=== PATIENT | male | born 1980 | race Caucasian/White ===

== ENCOUNTER 2016-12-19 11:54 | Emergency (ER) | payer OTHER ==
[2016-12-19] MEDS ORDERED: Sodium Chloride 0.9% 10 ML Syringe FLUSH PRN (13:27)
--- NOTE | 2016-12-19 13:36 | EDM.PDOC ---
ED HPI GENERAL MEDICAL PROBLEM - General Chief Complaint: Chest Pain Stated Complaint: CHEST TIGHTNESS OFF AND ON Time Seen by Provider: 12/19/16 13:00 Source of Information: Reports: Patient History Limitations: Reports: No Limitations - History of Present Illness INITIAL COMMENTS - FREE TEXT/NARRATIVE: Patient is a 35-year-old male has been expressing intermittent chest pain off and on for the past few months. Describes as a twinge to his heart. Discomfort comes and goes. As of recently the frequency of episodes has increased with radiation into his arms bilaterally. States discomfort comes on while at rest. Describes the chest discomfort as a tightness. There has been a few instances where it increases with breathing. For the most part it comes on with no known provoking activities. Pain intensity varies. As of recent 2 out of 10 while resting. There has been no known increase in stress in his life. With onset of episodes he has no nausea or vomiting, diaphoresis, lightheadedness, dizziness, pre-/syncopal episodes, palpitations, or shortness of breath. He has no history of DVT or PE. He has no risk factors according to perc rule. Past medical history includes asthma and is currently on albuterol. Denies any smoking history. SH non contributory. Denies alcohol or recreational drug use. Dad 2 years ago due to CVA. No known history of CAD for 1st degree relative. Obviously there is some vascular disease noted. Chest Pain Score (Numeric/FACES): 2 - Related Data Allergies Allergy/AdvReac Type Severity Reaction Status Date / Time No Known Allergies Allergy Verified 12/19/16 12:08 Home Meds: Home Meds Albuterol Sulfate [Proair Hfa] 8.5 gm IH Q4HR PRN #1 [email or web address] 12/19/16 [Rx] Past Medical History Respiratory History: Reports: Asthma - Past Surgical History Musculoskeletal Surgical History: Reports: Other (See Below) Other Musculoskeletal Surgeries/Procedures:: knee reconstruction, right Social & Family History - Tobacco Use Smoking Status *Q: Never Smoker Second Hand Smoke Exposure: No - Caffeine Use Caffeine Use: Reports: Soda - Recreational Drug Use Recreational Drug Use: No ED ROS GENERAL - Review of Systems Review Of Systems: ROS reveals no pertinent complaints other than HPI. ED EXAM, GENERAL - Physical Exam Exam: See Below Exam Limited By: No Limitations General Appearance: Alert, WD/WN, No Apparent Distress Eye Exam: Bilateral Eye: PERRL Ears: Hearing Grossly Normal Nose: Normal Inspection Throat/Mouth: Normal Voice, No Airway Compromise Neck: Normal Inspection, Supple Respiratory/Chest: No Respiratory Distress, Lungs Clear, Normal Breath Sounds, No Accessory Muscle Use, Chest Non-Tender Cardiovascular: Normal Peripheral Pulses, Regular Rate, Rhythm, No Murmur Peripheral Pulses: 2+: Radial (L), Radial (R) GI/Abdominal: Normal Bowel Sounds, Soft, Non-Tender, No Organomegaly, No Distention Back Exam: Normal Inspection, Full Range of Motion. No: CVA Tenderness (L), CVA Tenderness (R) Extremities: Normal Inspection, Normal Range of Motion, Non-Tender, No Pedal Edema, Normal Capillary Refill Neurological: Alert, Oriented, CN II-XII Intact, Normal Cognition, No Motor/ Sensory Deficits Psychiatric: Normal Affect, Normal Mood Skin Exam: Warm, Dry, Intact, Normal Color Course - Vital Signs Last Recorded V/S: Last Vital Signs Temp 97.7 F 12/19/16 12:06 Pulse 63 12/19/16 15:31 Resp 10 L 12/19/16 15:31 BP 121/71 12/19/16 15:31 Pulse Ox 99 12/19/16 15:31 - Orders/Labs/Meds Orders: Active Orders 24 hr Category Date Time Status EKG 12 Lead [EKG Documentation Completion] [RC] STAT Care 12/19/16 12:13 Active Peripheral IV Care [RC] . DIRECTED Care 12/19/16 13:27 Active Peripheral IV Insertion Adult [OM.PC] Stat Oth 12/19/16 13:27 Ordered Labs: Laboratory Tests 12/19/16 12/19/16 12/19/16 Range/Units 12:09 12:09 12:09 WBC 6.71 (4.23-9.07) K/mm3 RBC 5.22 (4.63-6.08) M/mm3 Hgb 16.0 (13.7-17.5) gm/L Hct 45.9 (40.1-51.0) % MCV 87.9 (79.0-92.2) fl MCH 30.7 (25.7-32.2) pg MCHC 34.9 (32.2-35.5) g/dl RDW Std Deviation 43.7 (35.1-43.9) fL Plt Count 252 (163-337) K/mm3 MPV 9.7 (9.4-12.3) fl Neut % (Auto) 63.3 (34.0-67.9) % Lymph % (Auto) 23.0 (21.8-53.1) % [place] % (Auto) 9.1 (5.3-12.2) % Eos % (Auto) 3.7 (0.8-7.0) Baso % (Auto) 0.6 (0.1-1.2) % Neut # (Auto) 4.25 (1.78-5.38) K/mm3 Lymph # (Auto) 1.54 (1.32-3.57) K/mm3 [place] # (Auto) 0.61 (0.30-0.82) K/mm3 Eos # (Auto) 0.25 (0.04-0.54) K/mm3 Baso # (Auto) 0.04 (0.01-0.08) K/mm3 D-Dimer, Quantitative < 0.19 L (0.19-0.59) mg/L Sodium 143 (136-145) mEq/L Potassium 4.3 (3.5-5.1) mEq/L Chloride 106 (98-107) mEq/L Carbon Dioxide 29 (21-32) mEq/L Anion Gap 12.3 (5-15) BUN 14 (7-18) mg/dL Creatinine 1.1 (0.7-1.3) mg/dL Est Cr Clr Drug Dosing 97.93 mL/min Estimated GFR (MDRD) > 60 (>60) mL/min BUN/Creatinine Ratio 12.7 L (14-18) Glucose 95 (74-106) mg/dL Calcium 8.6 (8.5-10.1) mg/dL Total Bilirubin 1.3 H (0.2-1.0) mg/dL AST 22 (15-37) U/L ALT 44 (16-63) U/L Alkaline Phosphatase 72 (46-116) U/L CK-MB (CK-2) < 0.5 (0-3.6) ng/ml Troponin I < 0.017 (0.00-0.056) ng/mL C-Reactive Protein < 0.2 (<1.0) mg/dL Total Protein 7.5 (6.4-8.2) g/dl Albumin 4.4 (3.4-5.0) g/dl Globulin 3.1 gm/dL Albumin/Globulin Ratio 1.4 (1-2) Lipase 95 (73-393) U/L Meds: Medications Discontinued Medications Generic Name Dose Route Start Last Admin Trade Name Gibson PRN Reason Stop Dose Admin Sodium Chloride 10 ml 12/19/16 13:27 12/19/16 13:44 Saline Flush FLUSH 10 ml ASDIRECTED PRN Administration Keep Vein Open - Re-Assessments/Exams Free Text/Narrative Re-Assessment/Exam: Ordered peripheral IV. Initial labs and studies include CBC, chem 14, troponin, CK-MB, lipase, CRP, d-dimer, chest x-ray two-view, and EKG. EKG did reveal sinus yomaira at a rate of [address] changes noted. Chest x-ray reviewed: No acute findings noted. Reviewed with Dr. Ruiz. Labs reviewed:CBC and C14 essentially normal. Troponin and D-Dimer with in normal limits. CRP is mildly elevated. Vital signs are stable. Will discharge patient home with instructions as documented. Departure - Departure Time of Disposition: 15:30 Disposition: Home, Self-Care 01 Condition: Good Clinical Impression: Atypical chest pain Prescriptions: Albuterol Sulfate [Proair Hfa] 8.5 gm IH Q4HR PRN #1 hfa.[email or web address] PRN Reason: Wheezing Instructions: Nonspecific Chest Pain Referrals: PCP,None [Primary Care Provider] - Forms: ED Department Discharge Additional Instructions: Follow-up with her PCP in one week for further evaluation. Return to the ED as needed for any new or worsening symptoms. EKG, chest x-ray, blood work did not reveal any concerning findings. Diagnosis will be atypical chest pain with undetermined cause. - My Orders Last 24 Hours: My Active Orders 12/19/16 13:27 Peripheral IV Care [RC] . DIRECTED Peripheral IV Insertion Adult [OM.PC] Stat - Assessment/Plan Last 24 Hours: My Active Orders 12/19/16 13:27 Peripheral IV Care [RC] . DIRECTED Peripheral IV Insertion Adult [OM.PC] Stat
[2016-12-19 15:43] VITALS: BP 121/71
--- NOTE | 2016-12-19 16:34 | CR ---
Chest: Two views of the chest were obtained. Comparison: No previous study. Heart size and mediastinum are normal. Lungs are clear. Bony structures are unremarkable for the patient's age. Impression: 1. Nothing acute is identified on two-view chest x-ray. Diagnostic code #1
== END 2016-12-19 15:42 | disposition home or self-care (01) ==
LOC: JD.ED 11:54
DX: R07.89 Other chest pain (principal); J45.909 Unspecified asthma, uncomplicated
CPT/HCPCS: 36415; 71020; 80053; 82553; 83690; 84484; 85025; 85379; 86140; 93005; 99285; J7050; 99284

== ENCOUNTER 2017-02-08 10:09 | Day surgery (SDC) | payer OTHER ==
[~2017-02-08 10:09] MED LIST: Lactated Ringers 1,000 ML IV SCH; Lidocaine 1% 4 ML ONE; Lidocaine 1%/Sod Bicarbonate in NS 8.4% 1 ML Syringe PRN; Midazolam 1 MG/ML 2 ML SDV ONE; Propofol 200 MG/20 ML SDV ONE; Sodium Chloride 0.9% 10 ML Syringe FLUSH PRN; fentaNYL 100 MCG/2 ML SDV ONE
--- NOTE | 2017-02-08 10:54 | PCM.PREANE ---
Preanesthetic Assessment - Anesthesia/Transfusion/Family Hx Anesthesia History: Prior Anesthesia Without Reaction Family History of Anesthesia Reaction: No Transfusion History: Prior Transfusion Without Reaction Intubation History: Unknown - Review of Systems General: No Symptoms Pulmonary: No Symptoms (Asthma/used inhaler this am.) Cardiovascular: No Symptoms Gastrointestinal: No Symptoms (GERD), Difficulty Swallowing Neurological: No Symptoms Other: Reports: None, Sinus Problem (Allergic rhinitis) - Physical Assessment NPO Status Date: 02/07/17 NPO Status Time: 21:00 Pulse: 53 O2 Sat by Pulse Oximetry: 97 Respiratory Rate: 16 Blood Pressure: 131/74 Temperature: 36.8 C Vital Signs: Last Vital Signs Temp 36.8 C 02/08/17 10:15 Pulse 53 L 02/08/17 10:15 Resp 16 02/08/17 10:15 BP 131/74 02/08/17 10:15 Pulse Ox 97 02/08/17 10:15 Height: 1.8 m Weight: 107.048 kg ASA Class: 2 Mental Status: Alert & Oriented x3 Airway Class: Mallampati = 2 Dentition: Reports: Normal Dentition, Caries Thyro-Mental Finger Breadths: 3 Mouth Opening Finger Breadths: 3 ROM/Head Extension: Full Lungs: Clear to Auscultation, Normal Respiratory Effort Cardiovascular: Regular Rate, Regular Rhythm, No Murmurs - Lab Values: Labs reviewed and noted and within acceptable ranges to proceed with scheduled procedure. - Imaging/EKG Impressions: EKG: SR Rate= 56, consider left ventricular hypertrophy/ no acute changes noted. Negative CXR - Allergies Allergies/Adverse Reactions: Allergies Allergy/AdvReac Type Severity Reaction Status Date / Time cephalexin [From Keflex] Allergy Hives Verified 02/07/17 15:15 fluconazole [From Diflucan] Allergy Hives Verified 02/07/17 15:15 - Anesthesia Plan Pre-Op Medication Ordered: None - Acknowledgements Anesthesia Type Planned: MAC Pt an Appropriate Candidate for the Planned Anesthesia: Yes Alternatives and Risks of Anesthesia Discussed w Pt/Guardian: Yes Pt/Guardian Understands and Agrees with Anesthesia Plan: Yes PreAnesthesia Questionnaire HEENT History: Reports: Allergic Rhinitis Cardiovascular History: Reports: None Respiratory History: Reports: Asthma Gastrointestinal History: Reports: GERD, Other (See Below) Other Gastrointestinal History: esophageal obstruction Genitourinary History: Reports: None [employer] History: Reports: None Neurological History: Reports: None Psychiatric History: Reports: None Hematologic History: Reports: None Immunologic History: Reports: None Oncologic (Cancer) History: Reports: None Dermatologic History: Reports: None - Past Surgical History Head Surgeries/Procedures: Reports: None Cardiovascular Surgical History: Reports: None GI Surgical History: Reports: None Female Surgical History: Reports: None Neurological Surgical History: Reports: None Musculoskeletal Surgical History: Reports: Other (See Below) Other Musculoskeletal Surgeries/Procedures:: knee reconstruction, right Oncologic Surgical History: Reports: None Dermatological Surgical History: Reports: None - SUBSTANCE USE Smoking Status *Q: Never Smoker Tobacco Use Within Last Twelve Months: No Second Hand Smoke Exposure: No Recreational Drug Use History: No - HOME MEDS Home Medications: Home Meds Albuterol Sulfate [Proair Hfa] 8.5 gm IH Q4HR PRN #1 hfa.[email or web address] 12/19/16 [Rx] - CURRENT (IN HOUSE) MEDS Current Meds: Current Medications Lactated Ringer's (Ringers, Lactated) 1,000 mls @ 125 mls/hr IV ASDIRECTED STEWART Stop: 02/08/17 23:00 Last Admin: 02/08/17 10:30 Dose: 125 mls/hr Lidocaine/Sodium Bicarbonate (Buffered Lidocaine 1% In Ns 8.4%) 0.25 ml .XX ONETIME PRN PRN Reason: Prior to IV Start Stop: 02/08/17 18:00 Last Admin: 02/08/17 10:30 Dose: 0.25 ml Sodium Chloride (Saline Flush) 10 ml FLUSH ASDIRECTED PRN PRN Reason: Keep Vein Open Stop: 02/08/17 18:00 Discontinued Medications Fentanyl (Sublimaze) Confirm Administered Dose 100 mcg .ROUTE .STK-MED ONE Stop: 02/08/17 07:48 Lidocaine HCl (Xylocaine-Mpf 1%) Confirm Administered Dose 4 mls @ as directed .ROUTE .STK-MED ONE Stop: 02/08/17 07:48 Midazolam HCl (Versed 1 Mg/Ml) Confirm Administered Dose 2 mg .ROUTE .STK-MED ONE Stop: 02/08/17 07:48 Propofol (Diprivan 20 Ml) Confirm Administered Dose 200 mg .ROUTE .STK-MED ONE Stop: 02/08/17 07:48
--- NOTE | 2017-02-08 12:28 | PCM.OPNOTE ---
- General Post-Op/Procedure Note Date of Surgery/Procedure: 02/08/17 Operative Procedure(s): Dysphagia with proximal and GE junction biopsy 2 using cold forceps Findings: Normal upper endoscopy Pre Op Diagnosis: History of dysphagia Post-Op Diagnosis: Same Anesthesia Technique: MAC, Moderate Sedation Primary Surgeon: Panchito Ferreira Pathology: GE junction biopsy 2 and proximal esophageal biopsy at 20 cm 2 EBL in mLs: 0 Complications: None Condition: Good Free Text/Narrative:: After adequate IV sedation and analgesia was obtained with monitoring the patient was placed on his left side. Through a bite block a lubricated upper endoscope was inserted into the esophagus and advanced under direct vision to the stomach. Additional air was given here. The scope was introduced into the duodenum. The second and first parts were endoscopically normal with no mass lesions or inflammatory changes seen. The antrum was unremarkable as well. In the retroflexed view there was no hiatal hernia. The fundus and cardiac regions were endoscopically normal. The stomach folds were normal as well. The scope was then withdrawn to the GE junction which was normal. Because of his history I took 2 biopsies with cold forceps. The body of the esophagus was unremarkable. 2 biopsies were taken in this proximal third for histologic review as well. The vocal cords were grossly normal and extubation. Photographs were taken for the patient and for the medical record. There were no complications.
--- NOTE | 2017-02-08 12:33 | PCM48HPAN ---
Post Anesthesia Note - EVALUATION WITHIN 48HRS OF ANESTHETIC Vital Signs in Normal Range: Yes Patient Participated in Evaluation: Yes Respiratory Function Stable: Yes Airway Patent: Yes Cardiovascular Function Stable: Yes Hydration Status Stable: Yes Pain Control Satisfactory: Yes Nausea and Vomiting Control Satisfactory: Yes Mental Status Recovered: Yes
[2017-02-08 13:01] VITALS: BP 124/72
== END 2017-02-08 12:55 | disposition home or self-care (01) ==
LOC: JD.SDS 10:09
PROVIDERS: ATTEND Surgery
DX: K20.9 Esophagitis, unspecified (principal); J45.909 Unspecified asthma, uncomplicated; K21.9 Gastro-esophageal reflux disease without esophagitis; Z88.1 Allergy status to other antibiotic agents; Z88.8 Allergy status to other drugs, medicaments and biological substances; Z79.899 Other long term (current) drug therapy; Z98.890 Other specified postprocedural states; Z78.9 Other specified health status
CPT/HCPCS: 43239; J3010; J7120; 00740; J2250; J2704

== ENCOUNTER 2024-07-22 13:16 | Day surgery (SDC) | payer BC, OTHER ==
[2024-07-22] MEDS: LORazepam 2 MG/ML SDV IVPUSH ONE (13:48)
[2024-07-22] MEDS: Glucagon,Human Recombinant 1 MG Vial IVPUSH ONE (13:51)
[2024-07-22] MEDS: Lactated Ringers 1,000 ML IV SCH (14:38)
[2024-07-22] MEDS ORDERED: Sodium Chloride 0.9% 10 ML Syringe FLUSH PRN (15:18)
[2024-07-22] MEDS ORDERED: Lactated Ringers 1,000 ML IV SCH (15:30)
[2024-07-22] MEDS ORDERED: Propofol 200 MG/20 ML SDV ONE ×4 (16:51→17:48)
[2024-07-22] MEDS ORDERED: Lidocaine 2% 5 ML SDV ONE (16:52)
[2024-07-22] MEDS ORDERED: Succinylcholine 200 MG/10 ML MDV ONE (16:58)
[2024-07-22] MEDS ORDERED: fentaNYL 100 MCG/2 ML SDV ONE ×2 (16:59→17:24)
[2024-07-22] MEDS ORDERED: Ondansetron 4 MG/2 ML SDV ONE (17:00)
[2024-07-22] MEDS ORDERED: Dexamethasone 4 MG/ML SDV ONE (17:00)
[2024-07-22] MEDS ORDERED: Midazolam 1 MG/ML 2 ML SDV ONE (17:34)
[2024-07-22] MEDS ORDERED: Lactated Ringers 1,000 ML IV ONE (17:45)
[2024-07-22] MEDS ORDERED: Rocuronium 50 MG/5 ML Vial ONE (17:53)
[2024-07-22] MEDS ORDERED: Neostigmine Methylsulfate 10 MG/10 ML MDV ONE (18:14)
[2024-07-22] MEDS ORDERED: Glycopyrrolate 0.2 MG/ML 2 ML SDV ONE (18:15)
[2024-07-22] MEDS ORDERED: HYDROmorphone 0.5 MG/0.5 ML Syringe IVPUSH PRN (18:34)
[2024-07-22] MEDS ORDERED: Ondansetron 4 MG/2 ML SDV IVPUSH PRN (18:34)
[2024-07-22] MEDS ORDERED: fentaNYL 100 MCG/2 ML SDV IVPUSH PRN (18:34)
[2024-07-22 19:10] VITALS: BP 105/65; PULSE 55
== END 2024-07-22 19:05 | disposition home or self-care (01) ==
LOC: JD.ED 13:16 → JD.SDS 15:24
PROVIDERS: ATTEND Surgery
DX: T18.128A Food in esophagus causing other injury, initial encounter (principal); K29.80 Duodenitis without bleeding; K31.A0 Gastric intestinal metaplasia, unspecified; K20.0 Eosinophilic esophagitis; Z88.8 Allergy status to other drugs, medicaments and biological substances; Z79.899 Other long term (current) drug therapy
CPT/HCPCS: 00731; 99285; J0330; J1100; J1610; J2003; J2060; J2250; J2405; J2704; J2710; J3010; J3490; J7120